=== PATIENT | female | born 1960 | race Caucasian/White ===

== ENCOUNTER 2016-05-10 09:25 | Emergency (ER) | payer MEDICARE, OTHER ==
[~2016-05-10 09:25] MED LIST: LEVAQUIN750 MG PO; SERTRALINE HCL100 MG PO; ZESTRIL20 MG PO
[2016-05-10 11:02] LABS: HEMOGLOBIN 16.7 gm/dl (12.3-15.3); RED BLOOD COUNT 5.3 M/UL (4.00-5.10); WHITE BLOOD COUNT 4.8 K/UL (4.5-11.0)
[2016-05-10 11:16] LABS: BUN/CREATININE RATIO 7 (0-10)
== END 2016-05-10 17:34 | disposition home or self-care (01) ==
LOC: ER1 09:25
PROVIDERS: Emergency Medicine
DX: J40 Bronchitis, not specified as acute or chronic (principal); D69.6 Thrombocytopenia, unspecified; J44.9 Chronic obstructive pulmonary disease, unspecified; L03.115 Cellulitis of right lower limb; R59.0 Localized enlarged lymph nodes; I10 Essential (primary) hypertension; F17.200 Nicotine dependence, unspecified, uncomplicated
CPT/HCPCS: 36415; 36600; 71010; 80053; 81001; 82803; 83880; 84484; 85025; 85379; 87040; 93005; 93971; 94640; 94664; 96374; 96375; 99285; J0696; J2930; J7050; Q9963

== ENCOUNTER → 2016-07-12 | Outpatient (CLI) | payer MEDICARE, OTHER | LOC: CT 06-27 10:00 → KOH-I 07-13 09:00 | DX: R06.02 Shortness of breath (principal); R91.1 Solitary pulmonary nodule; R59.0 Localized enlarged lymph nodes | CPT/HCPCS: 36415; 71260; 82565; 84520; J7050; Q9962 ==

== ENCOUNTER → 2016-07-21 | Outpatient (CLI) | payer MEDICARE, OTHER | LOC: US 15:15 | DX: R60.0 Localized edema (principal) | CPT/HCPCS: 93971 ==